=== PATIENT | male | born 1965 | race Caucasian/White ===

== ENCOUNTER 2017-09-18 01:17 | Observation (INO) | payer BC, OTHER ==
[2017-09-18] VITALS (8 sets, daily range): BP systolic 114–132; BP diastolic 74–91; PULSE 58–163; RESP 18–20; TEMP 97.4–98.6; O2SAT 95–97
[2017-09-18] MEDS ORDERED: ATEN50TA PO (01:24)
[2017-09-18] MEDS ORDERED: FISHCAP4 PO (01:25)
[2017-09-18] MEDS ORDERED: ASPI1TAB57 PO (01:25)
[2017-09-18] MEDS ORDERED: VITA1000 PO (01:25)
[2017-09-18] MEDS ORDERED: ATOR10TA15 PO (01:25)
[2017-09-18] MEDS ORDERED: SODIUM CHLOR 0.9% 1000 ML INJ 1,000 ML IV ONE (01:30)
[2017-09-18] MEDS ORDERED: ADENOSINE IV SOLN 3 MG/ML 2 ML VIAL IV PUSH ONE ×2 (01:30)
[2017-09-18 01:43] LABS: AUTOMATED NEUTROPHIL # 4.8 TH/MM3 (1.8-7.7); BASOPHIL # 0.1 TH/MM3 (0-0.2); BASOPHIL % 1.3 % (0.0-2.0); EOSINOPHIL # 0.2 TH/MM3 (0-0.4); EOSINOPHIL % 1.9 % (0.0-4.0); HEMATOCRIT 46.7 % (39.0-51.0); HEMO FLAGS DIFF FINAL; LYMPH % 37.9 % (9.0-44.0); LYMPHOCYTE # 3.5 TH/MM3 (1.0-4.8); MEAN CELL VOLUME 84.5 FL (80.0-100.0); MEAN CORPUSCULAR HEMOGLOBIN 29.2 PG (27.0-34.0); MEAN CORPUSCULAR HGB CONC 34.6 % (32.0-36.0); MONO % 6.9 % (0.0-8.0); PLATELET COUNT 260 TH/MM3 (150-450); RED BLOOD COUNT 5.53 MIL/MM3 (4.50-5.90); WHITE BLOOD COUNT 9.2 TH/MM3 (4.0-11.0)
[2017-09-18 01:53] LABS: APTT (PATIENT) 28.2 SEC (24.3-30.1)
--- NOTE | 2017-09-18 01:53 | RADRPT ---
EXAM DATE/TIME: 09/18/2017 01:39 [place] COMPARISON: No previous studies available for comparison. INDICATIONS : Elevated BP, Chest pain and dizziness MEDICAL HISTORY : Hypertension. SURGICAL HISTORY : None. ENCOUNTER: Initial ACUITY: 1 day PAIN SCORE: 7/10 LOCATION: Bilateral chest FINDINGS: A single view of the chest demonstrates the lungs to be symmetrically aerated without evidence of mas s, infiltrate or effusion. The cardiomediastinal contours are unremarkable. Osseous structures are intact. There are multiple overlying electrocardiogram leads. CONCLUSION: No acute disease. Hi Beaulieu MD on September 18, 2017 at 1:51 Board Certified Radiologist. This report was verified electronically.
[2017-09-18 02:13] LABS: ALKALINE PHOSPHATASE 102 U/L (45-117); ALT (GPT) 105 U/L (12-78); ANION GAP 9 MEQ/L (5-15); AST (GOT) 86 U/L (15-37); BICARBONATE 25.6 MEQ/L (21.0-32.0); BLOOD UREA NITROGEN 16 MG/DL (7-18); CHLORIDE 105 MEQ/L (98-107); CREATINE KINASE 347 U/L (39-308); GLOMERULAR FILTRATION RATE 70 ML/MIN (>89); MAGNESIUM 2.4 MG/DL (1.5-2.5); SODIUM (NA) 140 MEQ/L (136-145); TOTAL BILIRUBIN ADULT 0.5 MG/DL (0.2-1.0)
[2017-09-18 02:14] LABS: ALCOHOL LESS THAN 3 MG/DL (0-5)
--- NOTE | 2017-09-18 02:22 | PD ---
HPI Chief Complaint: Cardiac Complaint Time Seen by Provider: 01:24 Travel History International Travel<30 days: No Contact w/Intl Traveler<30days: No Traveled to known affect area: No History of Present Illness HPI The patient is a 52 year old male who presents to the [facility] emergency department with a history of palpitations that he reports began approximately an hour and a half prior to arrival. The patient reports that he has a history of SVT. He also reports a year and a half ago having a single episode of atrial fibrillation with RVR. He converted on Cardizem according to him and his . He reports having some chest pressure associated with the palpitations today. He arrives with a heart rate in the 160s. The patient reports that he did take his atenolol and low-dose aspirin today. He denies having any nausea or shortness of breath. He denies having any pain in his jaw , shoulders, or arms. He reports that he last had a stress test done several years ago. He reports that he does drink 2-3 glasses of wine daily. He reports that he on review of systems has had chronic intermittent diarrhea for the last year. Otherwise on review of systems, he denies having any known recent fevers, cough, congestion, neck pain, abdominal pain, vomiting, urinary symptoms, or neurologic symptoms. [facility] Past Medical History Narrative Medical The patient's past medical history is significant for SVT, paroxysmal atrial fibrillation, hyperlipidemia. Atrial Fibrillation: Yes Heart Rhythm Problems: Yes (AFIB) Past Surgical History Narrative Surgical The patient's past surgical history is significant for an appendectomy, hernia repair, knee surgery on the left. Appendectomy: Yes Other Surgery: Yes (HERNIA REPAIR) Social History Alcohol Use: Yes (2 TO 3 GLASSES DAILY) Tobacco Use: No Substance Use: No Allergies-Medications (Allergen,Severity, Reaction): Coded Allergies: No Known Allergies (Unverified , 09/18/17) Reported Meds & Prescriptions Reported Meds & Active Scripts Active Reported Vitamin D-1000 (Cholecalciferol) 1,000 Unit Tab Unknown Dose PO DAILY Fish Oil + D3 (Fish Oil-Cholecalciferol) 1,200-1,000 Mg-Unit Cap 1 Cap PO DAILY Atorvastatin (Atorvastatin Calcium) 10 Mg Tab 10 Mg PO HS Aspirin 81 (Aspirin) 81 Mg Tabdr 81 Mg PO DAILY Atenolol 50 Mg Tab 50 Mg PO DAILY Review of Systems Except as stated in HPI: all other systems reviewed are Neg General / Constitutional: No: Fever Eyes: No: Visual changes HENT: No: Headaches Cardiovascular: Positive: Chest Pain or Discomfort (chest tightness), Palpitations, Tachycardia Respiratory: No: Shortness of Breath Gastrointestinal: No: Nausea, Vomiting, Diarrhea, Abdominal Pain Genitourinary: No: Dysuria Musculoskeletal: No: Pain Skin: No Rash Neurologic: No: Weakness Psychiatric: No: Depression Endocrine: No: Polydipsia Hematologic/Lymphatic: No: Easy Bruising Physical Exam Narrative General: The patient is a well-developed well-nourished male in no acute distress. Head and Neck exam: Head is normocephalic atraumatic. Eyes: EOMI, pupils are equal round and reactive to light. Nose: Midline septum with pink mucous membranes Mouth: Dentition unremarkable. Moist mucus membranes. Posterior oropharynx is not erythematous. No tonsillar hypertrophy. Uvula midline. Airway patent. Neck: No palpable lymphadenopathy. No nuchal rigidity. No thyromegaly. Cardiovascular: Tachycardic rhythm in the 160s on telemetry without murmurs, gallops, or rubs. No pulse deficit to the extremities on simultaneous auscultation and palpation of his radial artery. Lungs: Clear to auscultation bilaterally. No wheezes, rhonchi, or rales. Abdomen: Soft, without tenderness to palpation in all 4 quadrants of the abdomen. No guarding, rebound, or rigidity. Normal bowel sounds are audible. No tenderness on palpation of McBurney's point. Extremities: No clubbing, cyanosis, or edema. 2+ pulses in all 4 extremities. No calf tenderness on palpation. Back: No spinous process tenderness to palpation. No costovertebral angle tenderness to palpation. Neurologic Exam: Grossly nonfocal. Skin Exam: No rash noted. Intact skin that is warm and dry. Data Data Last Documented VS Vital Signs Date Time Temp Pulse Resp B/P (MAP) Pulse Ox O2 Delivery O2 Flow Rate FiO2 09/18/17 03:00 80 18 117/74 (88) 97 09/18/17 01:32 Room Air 09/18/17 01:26 97.4 Orders Orders Adenosine Inj (Adenocard Inj) (09/18/17 01:30) Adenosine Inj (Adenocard Inj) (09/18/17 01:30) Sodium Chlor 0.9% 1000 Ml Inj (Ns 1000 M (09/18/17 01:30) Electrocardiogram (09/18/17:) Complete Blood Count With Diff (09/18/17:) Comprehensive Metabolic Panel (09/18/17:) Creatine Kinase (Cpk) (09/18/17:) Ckmb (Isoenzyme) Profile (09/18/17) Troponin I (09/18/17) B-Type Natriuretic Peptide (09/18/17) Prothrombin Time / Inr (Pt) (09/18/17) Act Partial Throm Time (Ptt) (09/18/17) Lipase (09/18/17) Urinalysis - C+S If Indicated (09/18/17) Magnesium (Mg) (09/18/17) Thyroid Stimulating Hormone (09/18/17) Chest, Single Ap (09/18/17:) Iv Access Insert/Monitor (09/18/17:) Ecg Monitoring (09/18/17:) Oximetry (09/18/17:) Drug Screen, Random Urine (09/18/17:) Alcohol (Ethanol) (09/18/17:26) CKMB (09/18/17 01:35) CKMB% (09/18/17 01:35) Admit Order (Ed Use Only) (09/18/17 04:29) Labs Laboratory Tests Test 09/18/17 01:35 09/18/17 02:00 White Blood Count 9.2 TH/MM3 Red Blood Count 5.53 MIL/MM3 Hemoglobin 16.2 GM/DL Hematocrit 46.7 % Mean Corpuscular Volume 84.5 FL Mean Corpuscular Hemoglobin 29.2 PG Mean Corpuscular Hemoglobin Concent 34.6 % Red Cell Distribution Width 13.0 % Platelet Count 260 TH/MM3 Mean Platelet Volume 9.3 FL Neutrophils (%) (Auto) 52.0 % Lymphocytes (%) (Auto) 37.9 % Monocytes (%) (Auto) 6.9 % Eosinophils (%) (Auto) 1.9 % Basophils (%) (Auto) 1.3 % Neutrophils # (Auto) 4.8 TH/MM3 Lymphocytes # (Auto) 3.5 TH/MM3 Monocytes # (Auto) 0.6 TH/MM3 Eosinophils # (Auto) 0.2 TH/MM3 Basophils # (Auto) 0.1 TH/MM3 CBC Comment DIFF FINAL Differential Comment Prothrombin Time 10.0 SEC Prothromb Time International Ratio 1.0 RATIO Activated Partial Thromboplast Time 28.2 SEC Blood Urea Nitrogen 16 MG/DL Creatinine 1.11 MG/DL Random Glucose 153 MG/DL Total Protein 7.7 GM/DL Albumin 4.1 GM/DL Calcium Level 8.6 MG/DL Magnesium Level 2.4 MG/DL Alkaline Phosphatase 102 U/L Aspartate Amino Transf (AST/SGOT) 86 U/L Alanine Aminotransferase (ALT/SGPT) 105 U/L Total Bilirubin 0.5 MG/DL Sodium Level 140 MEQ/L Potassium Level 4.0 MEQ/L Chloride Level 105 MEQ/L Carbon Dioxide Level 25.6 MEQ/L Anion Gap 9 MEQ/L Estimat Glomerular Filtration Rate 70 ML/MIN Total Creatine Kinase 347 U/L Creatine Kinase MB 3.0 NG/ML Creatine Kinase MB % 0.9 % Troponin I LESS THAN 0.02 NG/ML B-Type Natriuretic Peptide 45 PG/ML Lipase 195 U/L Thyroid Stimulating Hormone 3rd Gen 3.500 uIU/ML Ethyl Alcohol Level LESS THAN 3 MG/DL Urine Color COLORLESS Urine Turbidity CLEAR Urine pH 6.0 Urine Specific [place] 1.004 Urine Protein NEG mg/dL Urine Glucose (UA) NEG mg/dL Urine Ketones NEG mg/dL Urine Occult Blood NEG Urine Nitrite NEG Urine Bilirubin NEG Urine Urobilinogen LESS THAN 2.0 MG/DL Urine Leukocyte Esterase NEG Urine RBC 1 /hpf Urine WBC 2 /hpf Microscopic Urinalysis Comment CULT NOT INDICATED Urine Opiates Screen NEG Urine Barbiturates Screen NEG Urine Amphetamines Screen NEG Urine Benzodiazepines Screen NEG Urine Cocaine Screen NEG Urine Cannabinoids Screen NEG [facility] Medical Decision Making Medical Screen Exam Complete: Yes Emergency Medical Condition: Yes Medical Record Reviewed: Yes Interpretation(s) Last Impressions Chest X-Ray 09/18/17 0126 Signed Impressions: Service Date/Time: Monday, September 18, 2017 01:39 - CONCLUSION: No acute disease. Hi Beaulieu MD Differential Diagnosis A. fib with RVR, versus SVT, versus atrial flutter, versus sinus tachycardia, versus acute coronary syndrome, versus endocrine disorder Narrative Course During the course of the patients emergency department visit, the patients history, examination, and differential diagnosis were reviewed with the patient. The patient was placed on a invoice machine operator with oximetry and frequent blood pressure monitoring. The patient had IV access obtained and blood work sent for analysis. The patient had an ECG done on arrival. The patient's ECG reveals what appears to be SVT with a heart rate in the 160s, no acute ST segment elevation, QRS duration is 77 ms, QTC 343 ms. The patient was initially provided normal saline 1 L IV fluid bolus, the patient was placed on 2 L nasal cannula O2. The patient was asked to bear down for 10 seconds. This did not resolve his SVT. The patient was given adenosine 6 mg IV while I was at the bedside. The patient converted to a sinus rhythm with a heart rate in 90s. Repeat ECG reveals a sinus rhythm heart rate of 94, no acute ST segment elevation, QRS duration 85 ms, QTC 380 ms. The patients laboratory studies were reviewed and remarkable for a CBC that is within normal limits, CMP is remarkable for glucose of 153, AST 86, ALT 105, CPK 347 with an MB percent is 0.9, troponin I less than 0.02, BNP 45, lipase 195 , TSH 3.5, PT 10, PTT 28.2, urinalysis within normal limits. Alcohol level less than 3, urine drug screen is negative. Radiology studies were reviewed and remarkable for a chest x-ray that shows no acute cardiopulmonary disease. The patient's results were discussed with him. Given the patient's chest pressure associated with the tachycardia, the patient was offered admission to the chest pain center for rule out serial cardiac enzyme protocol followed by stress testing as he reports that he has not had a stress test done in years. The patient was agreeable to this plan. The patient was admitted to the hospital in stable condition and sent to a bed under the care of the chest pain center. Diagnosis Primary Impression: Chest pain, rule out acute myocardial infarction Additional Impression: SVT (supraventricular tachycardia) Admitting Information Admitting Physician Requests: Amira Camacho MD Sep 18, 2017 02:22
[2017-09-18 02:28] LABS: BLOOD, URINE NEG (NEG); GLUCOSE,URINE NEG (NEG); KETONE, URINE NEG (NEG); NITRITE,URINE NEG (NEG); URINE COLOR COLORLESS (YELLW/STRAW)
[2017-09-18 02:33] LABS: COMMENT (UR) CULT NOT INDICATED; CULTURE IF INDICATED CULT NOT INDICATED
[2017-09-18] MEDS ORDERED: ACETAMINOPHEN 500 MG CPLT PO PRN (04:45)
[2017-09-18] MEDS ORDERED: SODIUM CHLORIDE 0.9% FLUSH 10 ML FLUSH IV FLUSH PRN (04:45)
[2017-09-18 05:31] LABS: CREATINE KINASE 230 U/L (39-308)
[2017-09-18 05:43] LABS: CKMB 2.6 NG/ML (0.5-3.6)
[2017-09-18 08:14] LABS: CREATINE KINASE 209 U/L (39-308)
[2017-09-18 08:27] LABS: CKMB 2.4 NG/ML (0.5-3.6)
[2017-09-18] MEDS ORDERED: SODIUM CHLORIDE 0.9% FLUSH 10 ML FLUSH IV FLUSH SCH (09:00)
--- NOTE | 2017-09-18 09:45 | HHI.HP ---
[facility] Primary Care Physician Thierno Durham MD Chief Complaint Palpitations and chest pain History of Present Illness This is a 52-year-old male with history of paroxysmal SVT, when episode of A. fib with RVR, and hyperlipidemia that presents to ED with a complaint of palpitations the chest discomfort. Patient states that he was awoken with sensation of heart beating rapidly, diaphoretic, and having a chest pressure. States he's had SVT 3 times, most recently about 5 years ago. He tried Valsalva maneuvers last evening and it did not convert. He arrived in the ED about within about 30 minutes of being symptomatic. He was found to be in SVT with a rate of 164 and converted with adenosine in the emergency department. The symptoms resolved afterwards. 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 Cannot recall any recent stress testing. Believes last stress test was between 7-10 years ago. Denies recent illness. Denies fevers or chills. Currently asymptomatic. Review of Systems General: Patient denies fevers, chills recent, and recent travel HEENT: Patient denies headache, sore throat, difficulty swallowing. Cardiovascular: Has the chest discomfort as mentioned above. Denies sensation of heart beating rapidly or irregularly. No syncope. He was diaphoretic. Respiratory: He was mildly short of breath. Denies inspirational chest discomfort. Denies coughing wheezing or hemoptysis. GI: Patient denies nausea, vomiting, diarrhea, abdominal pain, bloody stools. Musculoskeletal: Patient denies joint pain or edema. Denies calf pain or edema. Neurovascular: Patient denies numbness, tingling, weakness in extremities. Denies headache. Endocrine: Denies polyuria and polydipsia. Hematologic: Denies easy bruising. Skin: Denies rash or itching. Past Family Social History Allergies: Coded Allergies: No Known Allergies (Unverified , 09/18/17) Past Medical History Paroxysmal SVT. One episode of A. fib about 2 years ago converted with Cardizem. Hyperlipidemia. Denies hypertension, diabetes, and known CAD. Past Surgical History Hernia repair, knee surgery, and appendectomy. Reported Medications Reported Meds & Active Scripts Active Reported Vitamin D-1000 (Cholecalciferol) 1,000 Unit Tab 3,000 PO DAILY Fish Oil + D3 (Fish Oil-Cholecalciferol) 1,200-1,000 Mg-Unit Cap 1 Cap PO DAILY Atorvastatin (Atorvastatin Calcium) 10 Mg Tab 10 Mg PO HS Aspirin 81 (Aspirin) 81 Mg Tabdr 81 Mg PO DAILY Atenolol 50 Mg Tab 50 Mg PO DAILY Active Ordered Medications Current Medications Medications (Trade) Dose Ordered Sig/Danette Route Start Time Stop Time Status Last Admin (NS Flush) 2 ml UNSCH PRN IV FLUSH 09/18/17 04:45 (NS Flush) 2 ml BID IV FLUSH 09/18/17 09:00 09/18/17 08:37 (Tylenol) 500 mg Q4H PRN PO 09/18/17 04:45 Family History Denies family history of CAD. Social History Quit smoking 17 years ago. Prior that he smoked between 1-2 packs of cigarettes daily for approximately 20 years. Has on average 2-3 glasses of wine a day. Denies illicit drugs. 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 Physical Exam Vital Signs Vital Signs Date Time Temp Pulse Resp B/P (MAP) Pulse Ox O2 Delivery O2 Flow Rate FiO2 09/18/17 07:48 98.6 61 20 123/81 (95) 95 09/18/17 06:30 09/18/17 06:24 97.9 66 18 132/76 (94) 96 09/18/17 04:40 68 18 114/74 (87) 97 09/18/17 03:00 80 18 117/74 (88) 97 09/18/17 02:00 86 18 115/81 (92) 95 09/18/17 01:32 96 Room Air 09/18/17 01:30 163 09/18/17 01:26 97.4 163 20 132/91 (105) 96 Physical Exam GENERAL: This is a well-nourished, well-developed patient, in no apparent distress. Patient speaks in clear complete sentences. Patient is pleasant. HEENT: Head is atraumatic and normocephalic. Neck is supple without lymphadenopathy and trachea is midline. No JVD or carotid bruits. CARDIOVASCULAR: Regular rate and rhythm without murmurs, gallops, or rubs. RESPIRATORY: Clear to auscultation. Breath sounds equal bilaterally. No wheezes , rales, or rhonchi. Chest wall is nontender. No use of accessory muscles. GASTROINTESTINAL: Abdomen is nontender, nondistended. Abdomen soft. No obvious pulsatile mass or bruit. No CVA tenderness. Strong femoral pulses bilaterally. Normal bowel sounds in all quadrants. MUSCULOSKELETAL: Patient is moving upper and lower extremities freely. No calf tenderness or edema, no Homans sign. Strong pulses in upper and lower extremities. NEUROLOGICAL: Patient is alert and oriented. Cranial nerves 2-12 are grossly intact. No focal deficits and speech is clear. SKIN: No rash and turgor is normal. Laboratory Laboratory Tests Test 09/18/17 01:35 09/18/17 02:00 09/18/17 04:45 09/18/17 07:30 White Blood Count 9.2 Red Blood Count 5.53 Hemoglobin 16.2 Hematocrit 46.7 Mean Corpuscular Volume 84.5 Mean Corpuscular Hemoglobin 29.2 Mean Corpuscular Hemoglobin Concent 34.6 Red Cell Distribution Width 13.0 Platelet Count 260 Mean Platelet Volume 9.3 Neutrophils (%) (Auto) 52.0 Lymphocytes (%) (Auto) 37.9 Monocytes (%) (Auto) 6.9 Eosinophils (%) (Auto) 1.9 Basophils (%) (Auto) 1.3 Neutrophils # (Auto) 4.8 Lymphocytes # (Auto) 3.5 Monocytes # (Auto) 0.6 Eosinophils # (Auto) 0.2 Basophils # (Auto) 0.1 CBC Comment DIFF FINAL Differential Comment Prothrombin Time 10.0 Prothromb Time International Ratio 1.0 Activated Partial Thromboplast Time 28.2 Blood Urea Nitrogen 16 Creatinine 1.11 Random Glucose 153 Total Protein 7.7 Albumin 4.1 Calcium Level 8.6 Magnesium Level 2.4 Alkaline Phosphatase 102 Aspartate Amino Transf (AST/SGOT) 86 Alanine Aminotransferase (ALT/SGPT) 105 Total Bilirubin 0.5 Sodium Level 140 Potassium Level 4.0 Chloride Level 105 Carbon Dioxide Level 25.6 Anion Gap 9 Estimat Glomerular Filtration Rate 70 Total Creatine Kinase 347 230 209 Creatine Kinase MB 3.0 2.6 2.4 Creatine Kinase MB % 0.9 Troponin I LESS THAN 0.02 0.05 0.10 B-Type Natriuretic Peptide 45 Lipase 195 Thyroid Stimulating Hormone 3rd Gen 3.500 Ethyl Alcohol Level LESS THAN 3 Urine Color COLORLESS Urine Turbidity CLEAR Urine pH 6.0 Urine Specific [place] 1.004 Urine Protein NEG Urine Glucose (UA) NEG Urine Ketones NEG Urine Occult Blood NEG Urine Nitrite NEG Urine Bilirubin NEG Urine Urobilinogen LESS THAN 2.0 Urine Leukocyte Esterase NEG Urine RBC 1 Urine WBC 2 Microscopic Urinalysis Comment CULT NOT INDICATED Urine Opiates Screen NEG Urine Barbiturates Screen NEG Urine Amphetamines Screen NEG Urine Benzodiazepines Screen NEG Urine Cocaine Screen NEG Urine Cannabinoids Screen NEG Result Diagram: 09/18/17 0135 09/18/175 Imaging Last 48 hours Impressions Chest X-Ray 09/18/17125 Signed Impressions: Service Date/Time: Monday, September 18, 2017 01:39 - CONCLUSION: No acute disease. Hi Beaulieu MD Course Initial EKG is SVT with a rate of 164. Subsequent EKGs with sinus rhythm without significant ST segment depressions or elevations. Caprini VTE Risk Assessment Caprini VTE Risk Assessment: No/Low Risk (score <= 1) Caprini Risk Assessment Model Point Value = 1 Point Value = 2 Point Value = 3 Point Value = 5 Age 41-60 Minor surgery BMI > 25 kg/m2 Swollen legs Varicose veins or History of unexplained or recurrent spontaneous Oral contraceptives or hormone replacement Sepsis (< 1 month) Serious lung disease, including pneumonia (< 1 month) Abnormal pulmonary function Acute myocardial infarction Congestive heart failure (< 1 month) History of inflammatory bowel disease Medical patient at bed rest Age 61-74 Arthroscopic surgery Major open surgery (> 45 min) Laparoscopic surgery (> 45 min) Malignancy Confined to bed (> 72 hours) Immobilizing plaster cast Central venous access Age >= 75 History of VTE Family history of VTE Factor V Leiden Prothrombin [id number] Lupus anticoagulant Anticardiolipin antibodies Elevated serum homocysteine Heparin-induced thrombocytopenia Other congenital or acquired thrombophilia Stroke (< 1 month) Elective arthroplasty Hip, pelvis, or leg fracture Acute spinal cord injury (< 1 month) Prophylaxis Regimen Total Risk Factor Score Risk Level Prophylaxis Regimen 0-1 Low Early ambulation 2 Moderate Order ONE of the following: *Sequential Compression Device (SCD) *Heparin 5000 units SQ BID 3-4 Higher Order ONE of the following medications: *Heparin 5000 units SQ TID *Enoxaparin/Lovenox 40 mg SQ daily (WT < 150 kg, CrCl > 30 mL/min) *Enoxaparin/Lovenox 30 mg SQ daily (WT < 150 kg, CrCl > 10-29 mL/min) *Enoxaparin/Lovenox 30 mg SQ BID (WT < 150 kg, CrCl > 30 mL/min) AND/OR *Sequential Compression Device (SCD) 5 or more Highest Order ONE of the following medications: *Heparin 5000 units SQ TID (Preferred with Epidurals) *Enoxaparin/Lovenox 40 mg SQ daily (WT < 150 kg, CrCl > 30 mL/min) *Enoxaparin/Lovenox 30 mg SQ daily (WT < 150 kg, CrCl > 10-29 mL/min) *Enoxaparin/Lovenox 30 mg SQ BID (WT < 150 kg, CrCl > 30 mL/min) AND *Sequential Compression Device (SCD) Assessment and Plan Assessment and Plan * Paroxysmal SVT: Patient came in ED in SVT with a rate of 164. Converted in the ED with adenosine. Seen by Dr. Buddy Orona of cardiology in the chest pain center. Third troponin did elevate to 0.10, likely demand mediated. This was discussed with Dr. Orona. Patient will undergo a Nasim protocol ETT and be discharged at this is nonischemic. He should follow-up with his rocket engine component mechanic and primary care physician. * Chest pain: Patient was stress test. He needs follow-up with his rocket engine component mechanic. * Hyperlipidemia: Continue current medication. Patient stable at this time. He is agreeable to this plan. Alec Simms Sep 18, 2017 09:44
--- NOTE | 2017-09-18 09:47 | HHI.DCPOC ---
Discharge Care Plan Diagnosis: (1) SVT (supraventricular tachycardia) (2) Chest pain (3) Hyperlipidemia Goals to Promote Your Health * To prevent worsening of your condition and complications * To maintain your health at the optimal level Directions to Meet Your Goals Take your medications as prescribed Follow your dietary instruction Follow activity as directed Keep your appointments as scheduled Take your immunizations and boosters as scheduled If your symptoms worsen call your PCP, if no PCP go to Urgent Care Center or Emergency Room Smoking is Dangerous to Your Health. Avoid second hand smoke Call the 24-hour hour crisis hotline for domestic abuse at Alec Simms Sep 18, 2017 09:47
[2017-09-18] MEDS ORDERED: ATENOLOL 50 MG TAB PO SCH (10:00)
--- NOTE | 2017-09-18 14:55 | EKG ---
Date Performed: 09/18/2017 Time Performed: 04:46:36 PTAGE: 52 years EKG: Sinus rhythm NORMAL ECG PREVIOUS TRACING : 09/18/2017 01.38 Since previous tracing, no significant change noted DOCTOR: Buddy Orona Interpretating Date/Time 09/18/2017 14:53:31
--- NOTE | 2017-09-18 14:56 | EKG ---
Date Performed: 09/18/2017 Time Performed: 01:24:56 PTAGE: 52 years EKG: SVT ABNORMAL RHYTHM ECG NO PREVIOUS TRACING DOCTOR: Buddy Orona Interpretating Date/Time 09/18/2017 14:55:02
--- NOTE | 2017-09-18 14:56 | EKG ---
Date Performed: 09/18/2017 Time Performed: 01:38:00 PTAGE: 52 years EKG: Sinus rhythm NORMAL ECG NO PREVIOUS TRACING Since previous tracing,rate is slower DOCTOR: Buddy Orona Interpretating Date/Time 09/18/2017 14:54:35
--- NOTE | 2017-09-18 15:00 | EKG ---
Date Performed: 09/18/2017 Time Performed: 07:44:15 PTAGE: 52 years EKG: Sinus rhythm NORMAL ECG Since PREVIOUS TRACING , no significant change noted DOCTOR: Buddy Orona Interpretating Date/Time 09/18/2017 14:58:11
--- NOTE | 2017-09-18 15:00 | TR ---
Date Performed: 09/18/2017 Time Performed: 09:56:41 DOCTOR: Buddy Orona DRUG LIST: CLINICAL HISTORY: CP /RO ACS REASON FOR TEST: REASON FOR ENDING: OBSERVATION: CONCLUSION: LATOSHA PROTOCOL. NO CP. TEST STOPPED SECONDARY TO SOB AND LEG FATIGUE AND MEETING GOA L HR. OCCASIONAL PVCS.Maximum WW=906 % Max HR Achieved=88.0% Maximum RG=125/76 Total Exercise Time=6: 36 COMMENTS: Patient exercised using the Latosha protocol. No electrocardiographic changes were seen to suggest ischemia. Hemodynamic response to exercise was normal. No significant arrhythmia was prese nt.
[2017-09-18] MEDS ORDERED: ATORVASTATIN 10 MG TAB PO SCH (21:00)
== END 2017-09-18 11:16 | disposition home or self-care (01) ==
LOC: NEPE 01:17 → NEDA 04:31 → NEPGCP 06:21
PROVIDERS: ADMIT Internal Medicine Interventional Cardiology; ATTEND Internal Medicine Interventional Cardiology
DX: I47.1 Supraventricular tachycardia (principal); R07.89 Other chest pain; E78.5 Hyperlipidemia, unspecified; R19.7 Diarrhea, unspecified; R94.31 Abnormal electrocardiogram [ECG] [EKG]; I10 Essential (primary) hypertension; Z79.899 Other long term (current) drug therapy; Z79.82 Long term (current) use of aspirin; Z87.891 Personal history of nicotine dependence
CPT/HCPCS: 71010; 80053; 80307; 81001; 82550; 82552; 83690; 83735; 83880; 84443; 84484; 85025; 85610; 85730; 93005; 93017; 96360; 99285; G0378; J0153; J7030